=== PATIENT | male | born 1985 | race Caucasian/White ===

== ENCOUNTER 2020-04-11 09:42 | Emergency (ER) | payer OTHER ==
[2020-04-11 09:51] VITALS: BP 124/83; PULSE 69
[2020-04-11] MEDS ORDERED: Diphtheria,Pertussis(Acell),Tetanus Vaccine 0.5 ML Syringe IM ONE (09:55)
--- NOTE | 2020-04-11 10:00 | EDM.PDOC ---
ED HPI GENERAL MEDICAL PROBLEM - General Chief Complaint: Upper Extremity Injury/Pain Stated Complaint: NAIL THREW THUMB Time Seen by Provider: 04/11/20 09:55 Source of Information: Reports: Patient History Limitations: Reports: No Limitations - History of Present Illness INITIAL COMMENTS - FREE TEXT/NARRATIVE: 34-year-old male presents to the ED after accidentally shooting himself with a nail gun in the right hand. Of note he is right-hand dominant. Patient states he was framing this morning and not exactly sure how the nail gun went off. The nail pierced between the first and second webspace of the right hand and appears to gone through the thenar eminence and did not exit through the palmar aspect of the hand. He pulled the nail out about an inch but could not get the nail out completely because it is ringed. Not sure when his last tetanus toxoid was administered probably not since he was in the [employer] which was about 14 years ago. Onset: Today Onset Date: 04/11/20 Onset Time: 09:20 Duration: Minutes: Location: Reports: Upper Extremity, Right (Nail gun accident with nail piercing through the first and second webspace of the right hand through the thenar eminence but no exit wound.) Quality: Reports: Ache, Throbbing Severity: Moderate Improves with: Reports: Rest Worsens with: Reports: Movement (Of the thumb particularly) Context: Reports: Trauma (Accidentally shot himself with a nail gun). 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 (see below) (1.) - Related Data Allergies Allergy/AdvReac Type Severity Reaction Status Date / Time Penicillins Allergy Severe Hives Verified 02/24/15 14:05 Home Meds: Home Meds Cyclobenzaprine [Flexeril] 5 - 10 mg PO Q8H PRN 02/24/15 [History] oxyCODONE HCl/Acetaminophen [Percocet 10-325 MG] 1 - 2 each PO Q6H PRN 02/24/15 [History] Doxycycline [Vibra-Tabs] 100 mg PO BID #20 tablet 04/11/20 [Rx] Past Medical History - Past Health History Medical/Surgical History: Denies Medical/Surgical History Cardiovascular History: Reports: Hypertension Musculoskeletal History: Reports: Back Pain, Chronic (Intermittent problems with low back pain) Psychiatric History: Reports: Depression Social & Family History - Tobacco Use Smoking Status *Q: Never Smoker - Caffeine Use Caffeine Use: Reports: None - Recreational Drug Use Recreational Drug Use: Yes Drug Use in Last 12 Months: Yes Recreational Drug Type: Reports: Marijuana/Hashish Recreational Drug Use Frequency: Socially - Living Situation & Occupation Living situation: Reports: Single Occupation: Unemployed Review of Systems - Review of Systems Review Of Systems: See Below Constitutional: Reports: No Symptoms Eyes: Reports: No Symptoms Ears: Reports: No Symptoms Nose: Reports: No Symptoms Mouth/Throat: Reports: No Symptoms Respiratory: Reports: No Symptoms Cardiovascular: Reports: No Symptoms GI/Abdominal: Reports: No Symptoms Genitourinary: Reports: No Symptoms Musculoskeletal: Reports: Back Pain (Intermittent problems with low back pain) Skin: Reports: No Symptoms Neurological: Reports: No Symptoms Psychiatric: Reports: Depression ED EXAM, GENERAL - Physical Exam Exam: See Below Exam Limited By: No Limitations General Appearance: Alert, WD/WN, Moderate Distress, Other (Temperature is 36.1 pulse is 69 respiratory 16 BP 12/19/1982 pulse ox 98% on room air) Eye Exam: Bilateral Eye: Normal Inspection, PERRL Extremities: Other (Mostly pierced soft tissues without bony injury.) Neurological: Alert, Oriented, CN II-XII Intact, Normal Cognition, Normal Gait Psychiatric: Normal Affect, Normal Mood Skin Exam: Warm, Dry, Intact, Normal Color, No Rash ED TRAUMA EXTREMITY PROCEDURES - Laceration/Wound Repair Ventral Hand Lac/Wound Length In cm: 0.5 (He had an arterial bleed from puncture wound from nail gun injury with nail penetrating through the soft tissues of his right hand. Once we remove the nail he developed an arterial bleed that required ligation and wound closure) Appearance: Subcutaneous, Clean Distal NVT: Neuro & Vascular Intact Anesthetic Type: Local Local Anesthesia - Lidocaine (Xylocaine): 1% with EPI Local Anesthetic Volume: 2cc Skin Prep: Saline Closed With: Sutures Suture Size: 3-0 # of Sutures: 2 (X shaped sutures placed to provide ligation and hemostasis.) Suture Type: Nylon, Interrupted, Simple Course - Vital Signs Last Recorded V/S: Last Vital Signs Temp 36.1 C 04/11/20 09:48 Pulse 69 04/11/20 09:48 Resp 16 04/11/20 09:48 BP 124/83 04/11/20 09:48 Pulse Ox 98 04/11/20 09:48 - Orders/Labs/Meds Orders: Active Orders 24 hr Category Date Time Status Vaccines to be Administered [RC] PER UNIT ROUTINE Care 04/11/20 09:55 Active Hand Comp Min 3V Rt [CR] Stat Exams 04/11/20 09:56 Taken Meds: Medications Discontinued Medications Generic Name Dose Route Start Last Admin Trade Name Sherrie PRN Reason Stop Dose Admin Diphtheria/Tetanus/Acell Pertussis 0.5 ml 04/11/20 09:55 Adacel IM 04/11/20 09:56 .ONCE ONE Doxycycline Hyclate 200 mg 04/11/20 10:24 Vibramycin PO 04/11/20 10:25 ONETIME ONE Lidocaine/Epinephrine 20 ml 04/11/20 10:37 04/11/20 10:41 Xylocaine 1% With Epinephrine 1:100,000 INJECT 04/11/20 10:38 20 ml ONETIME ONE Administration - Radiology Interpretation Free Text/Narrative:: 84-year-old male presents to the ED with a acute injury to his right hand by way of a nail gun firing accidentally with a 3-1/2 inch nail penetrating between the first and second webspace of his right hand. It appears to have traveled mostly towards the palm of the hand into the thenar eminence. There appears to be no neurovascular bundle injury to either the index finger or the thumb at this time. He is not sure when his last tetanus toxoid was given and therefore it will be updated today. X-ray of the hand to be done to make sure there is no bony injury and then the nail will be removed. - Re-Assessments/Exams Free Text/Narrative Re-Assessment/Exam: 04/11/20 10:23 area reveals the 3 and half inch nail to penetrate into the soft tissues of the thenar eminence a lying over top of the first metacarpal bone without any fractures evident. The nail was removed with the aid of a small vice cub reporter. He will require a compression dressing to help stop the bleeding. Wound will be cleansed and topical antibiotic placed. He will be placed on doxycycline 100 mg twice daily for 10 days to prevent secondary wound infection. First doses of doxy will be given in the ED today. Motrin 600 mg every 6 hours needed for pain relief. 04/11/20 10:36 upon recheck he has significant active bleeding from the puncture wound site. There is an arterial bleed that is spurting. Therefore will require ligation and laceration repair to control hemorrhage. 04/11/20 10:56 3-0 nylon sutures were placed in the wound to provide hemostasis. They will need to be removed in 10 days time. Departure - Departure Time of Disposition: 10:35 Disposition: Home, Self-Care 01 Condition: Fair Clinical Impression: Foreign body of right hand Qualifiers: Encounter type: initial encounter Qualified Code(s): S60.551A - Superficial foreign body of right hand, initial encounter - Discharge Information *PRESCRIPTION DRUG MONITORING PROGRAM REVIEWED*: Not Applicable *COPY OF PRESCRIPTION DRUG MONITORING REPORT IN PATIENT ASHLI: Not Applicable Prescriptions: Doxycycline [Vibra-Tabs] 100 mg PO BID #20 tablet Instructions: Hand or Foot Foreign Body, Adult Referrals: Reshma Tabares [employer] [id number] [Primary Care Provider] - Forms: ED Department Discharge Additional Instructions: Evaluation in the emergency room today in regards to accidentally shooting herself with a 3-1/2 inch nail from a nail gun. The nail entered through the webspace between the first and second fingers of your right hand and went through the thenar muscles which are 3 muscles in the palmar aspect of your hand. There was no exit wound. An x-ray revealed the nail had penetrated the soft tissues and missed the bone with no fractures evident. We therefore remove the nail with a's aid of a small vice cub reporter. Unfortunately the wound continued to bleed rather prolifically and an arterial bleed was appreciated. Therefore the wound required anesthesia with lidocaine with epinephrine and then laceration ligation of vessel x2 with 3-0 nylon suture. The sutures will need to stay in place for 10 days and then be removed. Treatment is to daily cleanse the wound with soap and water. The initial dressing could remain in place for the next 2 days to act as a pressure dressing and then daily cleanse with soap and water. Showering is okay. Wound should not be soaked under water until healed. Placed topical antibiotic such as bacitracin or Polysporin on the wound once daily. Cover with a bandage to keep clean. Need antibiotic doxycycline 100 mg by mouth twice daily for the next 10 days to prevent secondary wound infection. First 2 tablets were provided in the ED today. Next tablet would be due shortly before bed tonight. To medical care if any signs of infection occur such as increased redness swelling pain or obvious pus. Expect the area to be quite tender to touch for the next 7 to 10 days a particularly research and insights executive strength. Motrin 600 mg every 6 hours needed for pain relief. Sepsis Event Note - Evaluation Sepsis Screening Result: No Definite Risk - Focused Exam Vital Signs: Vital Signs Temp Pulse Resp BP Pulse Ox 04/11/20 09:48 36.1 C 69 16 124/83 98 Date Exam was Performed: 04/11/20 Time Exam was Performed: 10:57 - My Orders Last 24 Hours: My Active Orders 04/11/20 09:55 Vaccines to be Administered [RC] PER UNIT ROUTINE 04/11/20 09:56 Hand Comp Min 3V Rt [CR] Stat - Assessment/Plan Last 24 Hours: My Active Orders 04/11/20 09:55 Vaccines to be Administered [RC] PER UNIT ROUTINE 04/11/20 09:56 Hand Comp Min 3V Rt [CR] Stat
[2020-04-11] MEDS ORDERED: Doxycycline 100 MG Cap PO ONE (10:24)
[2020-04-11] MEDS ORDERED: Lidocaine 1% with EPINEPHrine 1:100,000 20 ML MDV INJECT ONE (10:37)
--- NOTE | 2020-04-12 11:21 | CR ---
Right hand: 4 views of the right hand were obtained. Comparison: No prior hand study. Metallic nail projected within the soft tissues between the thumb and 2nd finger. No bony fracture is appreciated. No additional abnormality is noted other than a small amount of soft tissue air. Impression: 1. Metallic nail within the soft tissues as noted above. 2. No bony fracture is identified. 3. Small amount of soft tissue air. Diagnostic code #3 This report was dictated in MDT
== END 2020-04-11 11:41 | disposition home or self-care (01) ==
LOC: JD.ED 09:42
DX: S60.551A Superficial foreign body of right hand, initial encounter (principal); Z23 Encounter for immunization; Z88.0 Allergy status to penicillin; I10 Essential (primary) hypertension; W29.4XXA Contact with nail gun, initial encounter
CPT/HCPCS: 12001; 73130; 90471; 90715; 99283; A9270

== ENCOUNTER 2025-06-07 13:18 | Emergency (ER) | payer OTHER ==
[2025-06-07 14:59] VITALS: BP 173/98; PULSE 87
== END 2025-06-07 14:30 | disposition home or self-care (01) ==
LOC: JD.ED 13:18
DX: K64.8 Other hemorrhoids (principal); I10 Essential (primary) hypertension; Z88.0 Allergy status to penicillin; Z79.899 Other long term (current) drug therapy
CPT/HCPCS: 99283